=== PATIENT | male | born 1955 | race Caucasian/White ===

== ENCOUNTER 2017-03-19 07:37 | Day surgery (SDC) | payer OTHER ==
[~2017-03-19] VITALS: Ht 167.6 cm; Wt 93.0 kg
[~2017-03-19 07:37] MED LIST: ACTOS45 MG PO; ASPIRIN EC325 MG PO; ASPIRIN81 M2 PO; CINNAMON500 MG PO; COQ-10100 MG PO; ENDOCET 5-3251 EACH PO; FERROUS SULFAT325 MG PO; FORTAMET1000 M1 PO; GLIPIZIDE5 MG PO; HYDROCODON-ACE1 EAC7 PO; IBUPROFEN800 MG PO; LIPITOR40 MG PO; LISINOPRIL2.5 MG PO; METFORMIN HCL1000 MG PO; MIRALAX17 GM PO; NEXIUM40 MG PO; OXYCONTIN10 MG PO; PERCOCET 5/31 TABLET PO; STOOL SOFTENER100 MG PO; VITAMIN D32000 UNI1 PO
[2017-03-19] MEDS ORDERED: TRAMADOL HCL50 MG PO (08:03)
[2017-03-19] MEDS ORDERED: GABAPENTIN100 MG PO ×2 (08:04→08:05)
[2017-03-19 08:08] LABS: POINT-OF-CARE METER ID UU14174212
== END 2017-03-19 09:10 | disposition home or self-care (01) ==
LOC: PAIN 07:37 → SDC 08:15 → PAIN 09:10
PROVIDERS: Anesthesiology Pain Medicine
DX: M51.16 Intervertebral disc disorders with radiculopathy, lumbar region (principal); E11.9 Type 2 diabetes mellitus without complications; K21.9 Gastro-esophageal reflux disease without esophagitis; R03.0 Elevated blood-pressure reading, without diagnosis of hypertension; E78.5 Hyperlipidemia, unspecified; E66.9 Obesity, unspecified; Z68.34 Body mass index [BMI] 34.0-34.9, adult; M53.3 Sacrococcygeal disorders, not elsewhere classified; Z79.891 Long term (current) use of opiate analgesic; Z79.84 Long term (current) use of oral hypoglycemic drugs; Z79.82 Long term (current) use of aspirin; Z79.899 Other long term (current) drug therapy; Z88.2 Allergy status to sulfonamides
CPT/HCPCS: 82948; J1030; J2250; J3010; S0020

== ENCOUNTER 2017-03-26 07:10 | Day surgery (SDC) | payer OTHER ==
[~2017-03-26] VITALS: Ht 167.6 cm; Wt 93.0 kg
[~2017-03-26 07:10] MED LIST changes: +GABAPENTIN100 MG PO; +TRAMADOL HCL50 MG PO
[2017-03-26 07:32] LABS: POINT-OF-CARE METER ID UU14174212
== END 2017-03-26 09:00 | disposition home or self-care (01) ==
LOC: PAIN 07:10 → SDC 07:45 → PAIN 09:00
PROVIDERS: Anesthesiology Pain Medicine
DX: M51.16 Intervertebral disc disorders with radiculopathy, lumbar region (principal); M54.5 Low back pain; M51.34 Other intervertebral disc degeneration, thoracic region; E11.9 Type 2 diabetes mellitus without complications; K21.9 Gastro-esophageal reflux disease without esophagitis; Z79.84 Long term (current) use of oral hypoglycemic drugs; Z79.82 Long term (current) use of aspirin; Z79.891 Long term (current) use of opiate analgesic; Z79.899 Other long term (current) drug therapy; E66.9 Obesity, unspecified; M53.3 Sacrococcygeal disorders, not elsewhere classified; Z88.2 Allergy status to sulfonamides
CPT/HCPCS: 82948; J1030; J2250; J3010; S0020

== ENCOUNTER 2017-04-28 10:53 | Emergency (ER) | payer OTHER ==
[~2017-04-28] VITALS: Ht 167.6 cm; Wt 94.5 kg
[2017-04-28 11:49] LABS: BILIRUBIN NEGATIVE; BLOOD NEGATIVE; COLOR YELLOW ((YELLOW)); GLUCOSE (STRIP) NEGATIVE; KETONES 5; LEUKOCYTES NEGATIVE; NITRITE NEGATIVE; PROTEIN (STRIP) 30; SPECIFIC GRAVITY 1.032 (1.000-1.030); UROBILINOGEN 0.2 MG/DL (0.2-1.0)
[2017-04-28 11:51] LABS: ADD MIUA? NO; UCUL ADDED? NO
[2017-04-28 12:25] LABS: HEMATOCRIT 41.2 % (38.0-50.0); MCV 91.4 FL (86-99); MEAN PLAT.VOLUME 8.9 uM^3 (9.0-12.4); PLATELET COUNT 259 K/uL (156-360); RBC DIS.WIDTH-CV 13.5 % (11.8-14.6); RBC DIS.WIDTH-SD 45.8 % (39-53); RED BLOOD COUNT 4.51 M/uL (4.00-5.50); WHITE BLOOD COUNT 9.3 K/uL (4.1-10.2)
[2017-04-28 12:35] LABS: CHLORIDE 104 mEq/L (99-109); POTASSIUM 5.1 mEq/L (3.7-5.4); SODIUM 140 mEq/L (136-147)
[2017-04-28 12:37] LABS: GLUCOSE 141 mg/dL (70-99)
[2017-04-28 12:38] LABS: ANION GAP 9 MEQ/L (2-14)
[2017-04-28 12:41] LABS: GFR ESTIMATE (CALCULATED) > 59 mL/min/; UREA NITROGEN (BUN) 23 mg/dL (9-23)
[2017-04-28] MEDS ORDERED: ZOFRAN4 MG PO (18:20)
[2017-04-28] MEDS ORDERED: FLOMAX0.4 MG PO (18:20)
[2017-04-28] MEDS ORDERED: CIPRO500 MG PO (18:20)
[2017-04-28] MEDS ORDERED: PERCOCET 5/31 TABLET PO (18:20)
[2017-04-28 19:59] VITALS: BP 150/78
== END 2017-04-28 20:01 | disposition home or self-care (01) ==
LOC: EME 10:53
DX: N13.2 Hydronephrosis with renal and ureteral calculous obstruction (principal); R11.2 Nausea with vomiting, unspecified; E11.65 Type 2 diabetes mellitus with hyperglycemia; Z79.84 Long term (current) use of oral hypoglycemic drugs; I10 Essential (primary) hypertension; K21.9 Gastro-esophageal reflux disease without esophagitis; H54.8 Legal blindness, as defined in USA
CPT/HCPCS: 74176; 80048; 81003; 85027; 99281; 99284; J0696; J2270; J2405; J3010; J7050

== ENCOUNTER → 2017-05-01 | Outpatient (CLI) | payer OTHER ==
[~2017-05-01] MED LIST changes: +CIPRO500 MG PO; +DILAUDID2 MG PO; +DILAUDID4 MG PO; +FLOMAX0.4 MG PO; +LIPITOR80 MG PO; +METFORMIN HCL500 M1 PO; +OMEPRAZOLE20 MG PO; +ZOFRAN4 MG PO
== END | disposition home or self-care (01) ==
LOC: CDC 11:38
DX: N20.0 Calculus of kidney (principal); R94.31 Abnormal electrocardiogram [ECG] [EKG]
CPT/HCPCS: 93000

== ENCOUNTER 2017-05-03 18:01 | Inpatient (IN) | payer OTHER ==
[~2017-05-03] VITALS: Ht 167.6 cm; Wt 95.0 kg
[~2017-05-03 18:01] MED LIST changes: -DILAUDID2 MG PO; -DILAUDID4 MG PO; -LIPITOR80 MG PO; -METFORMIN HCL500 M1 PO; -OMEPRAZOLE20 MG PO
[2017-05-03 19:36] LABS: HEMATOCRIT 38.4 % (38.0-50.0); MCH 30.8 PG (29.0-34.0); MCHC 34.1 G/DL (30.0-36.0); MCV 90.1 FL (86-99); MEAN PLAT.VOLUME 8.8 uM^3 (9.0-12.4); PLATELET COUNT 231 K/uL (156-360); RBC DIS.WIDTH-CV 13.3 % (11.8-14.6); RBC DIS.WIDTH-SD 43.8 % (39-53); RED BLOOD COUNT 4.26 M/uL (4.00-5.50); WHITE BLOOD COUNT 9.8 K/uL (4.1-10.2)
[2017-05-03 19:45] LABS: CHLORIDE 95 mEq/L (99-109); SODIUM 132 mEq/L (136-147)
[2017-05-03 19:47] LABS: GLUCOSE 161 mg/dL (70-99)
[2017-05-03 19:48] LABS: ANION GAP 12 MEQ/L (2-14)
[2017-05-03 19:49] LABS: TOTAL BILIRUBIN 0.9 mg/dL (0.0-1.0)
[2017-05-03 19:50] LABS: ALKALINE PHOSPHATASE 63 IU/L (3-129)
[2017-05-03 19:51] LABS: GFR ESTIMATE (CALCULATED) > 59 mL/min/
[2017-05-03 19:52] LABS: UREA NITROGEN (BUN) 16 mg/dL (9-23)
[2017-05-03 20:42] LABS: ADD MIUA? YES; BILIRUBIN NEGATIVE; BLOOD LARGE; COLOR YELLOW ((YELLOW)); GLUCOSE (STRIP) 50; KETONES 80; LEUKOCYTES MODERATE; NITRITE NEGATIVE; PROTEIN (STRIP) 30; UROBILINOGEN 0.2 MG/DL (0.2-1.0)
[2017-05-03 21:02] LABS: BACTERIA RARE /HPF; EPITHELIAL CELLS NONE SEEN /HPF; HYALINE CASTS 0-5 /LPF; MUCUS TRACE /LPF; RED BLOOD CELLS TNTC /HPF (0-5); UCUL ADDED? NO; WHITE BLOOD CELLS NONE SEEN /HPF (0-5)
[2017-05-03] MEDS ORDERED: LIPITOR80 MG PO (21:11)
[2017-05-03] MEDS ORDERED: OMEPRAZOLE20 MG PO (21:12)
[2017-05-03] MEDS ORDERED: DILAUDID4 MG PO (21:12)
[2017-05-03] MEDS ORDERED: METFORMIN HCL500 M1 PO (21:13)
[2017-05-04] VITALS (7 sets, daily range): BP systolic 139–183; BP diastolic 63–85
[2017-05-04 01:00] LABS: POINT-OF-CARE METER ID UU14162513
[2017-05-04] MEDS ORDERED: DILAUDID2 MG PO (01:19)
[2017-05-04 05:30] LABS: HEMATOCRIT 32.4 % (38.0-50.0); MCH 31.4 PG (29.0-34.0); MCHC 34.6 G/DL (30.0-36.0); MCV 90.8 FL (86-99); MEAN PLAT.VOLUME 8.9 uM^3 (9.0-12.4); PLATELET COUNT 222 K/uL (156-360); RBC DIS.WIDTH-CV 13.2 % (11.8-14.6); RBC DIS.WIDTH-SD 44.3 % (39-53); RED BLOOD COUNT 3.57 M/uL (4.00-5.50); WHITE BLOOD COUNT 8.7 K/uL (4.1-10.2)
[2017-05-04 05:55] LABS: ALKALINE PHOSPHATASE 52 IU/L (3-129); ANION GAP 8 MEQ/L (2-14); CHLORIDE 99 MEQ/L (99-109); GFR ESTIMATE (CALCULATED) > 59 mL/min/; GLUCOSE 142 mg/dL (70-99); POTASSIUM 4.6 MEQ/L (3.7-5.4); SAMPLE HEMOLYSIS CHECK 0; SAMPLE ICTERIC CHECK 0; SAMPLE LIPEMIA CHECK 0; SODIUM 134 MEQ/L (136-147); TOTAL BILIRUBIN 0.7 MG/DL (0.0-1.0); UREA NITROGEN (BUN) 15 mg/dL (9-23)
[2017-05-04 06:03] LABS: POINT-OF-CARE METER ID UU13113700
[2017-05-04 12:35] LABS: POINT-OF-CARE METER ID UU14162513
[2017-05-04 17:10] LABS: POINT-OF-CARE METER ID UU13113725
[2017-05-04 17:41] LABS: INTERNAL CONTROL VALID? YES
[2017-05-04 18:17] LABS: C DIFF TOXIN NEGATIVE (NEGATIVE)
[2017-05-04 18:28] LABS: PROBE CHECK PASS; SPECIMEN PROCESSING CONTROL PASS
[2017-05-04 23:30] LABS: POINT-OF-CARE METER ID UU13113725
[2017-05-05 06:19] LABS: POINT-OF-CARE METER ID UU13113725
[2017-05-05 06:50] LABS: HEMATOCRIT 33.2 % (38.0-50.0); MCH 30.7 PG (29.0-34.0); MCHC 33.7 G/DL (30.0-36.0); MEAN PLAT.VOLUME 8.9 uM^3 (9.0-12.4); PLATELET COUNT 266 K/uL (156-360); RBC DIS.WIDTH-CV 13.1 % (11.8-14.6); RBC DIS.WIDTH-SD 43.6 % (39-53); RED BLOOD COUNT 3.65 M/uL (4.00-5.50); WHITE BLOOD COUNT 9.7 K/uL (4.1-10.2)
[2017-05-05 07:14] LABS: ANION GAP 10 MEQ/L (2-14); CHLORIDE 99 MEQ/L (99-109); GFR ESTIMATE (CALCULATED) > 59 mL/min/; GLUCOSE 126 mg/dL (70-99); POTASSIUM 4.7 MEQ/L (3.7-5.4); SAMPLE HEMOLYSIS CHECK 0; SAMPLE ICTERIC CHECK 0; SAMPLE LIPEMIA CHECK 0; SODIUM 135 MEQ/L (136-147); UREA NITROGEN (BUN) 15 mg/dL (9-23)
[2017-05-05 08:28] VITALS: BP 186/88
[2017-05-05 11:00] LABS: POINT-OF-CARE METER ID UU13113725
[2017-05-05 11:28] VITALS: BP 165/76
[2017-05-05 16:21] VITALS: BP 127/69
[2017-05-05 17:07] LABS: POINT-OF-CARE METER ID UU13113725
[2017-05-05 20:09] VITALS: BP 143/67
[2017-05-05 22:29] VITALS: BP 159/76
[2017-05-06 03:04] VITALS: BP 194/88
[2017-05-06 06:39] LABS: ANION GAP 6 MEQ/L (2-14); CHLORIDE 105 MEQ/L (99-109); GFR ESTIMATE (CALCULATED) > 59 mL/min/; GLUCOSE 153 mg/dL (70-99); POTASSIUM 4.5 MEQ/L (3.7-5.4); SAMPLE HEMOLYSIS CHECK 0; SAMPLE ICTERIC CHECK 0; SAMPLE LIPEMIA CHECK 0; SODIUM 139 MEQ/L (136-147); UREA NITROGEN (BUN) 14 mg/dL (9-23)
[2017-05-06 07:37] VITALS: BP 207/93
[2017-05-06 08:18] VITALS: BP 179/80
[2017-05-06 11:05] LABS: POINT-OF-CARE METER ID UU13113725
[2017-05-06 11:28] VITALS: BP 165/77
[2017-05-06] MEDS ORDERED: LISINOPRIL5 MG PO (11:53)
[2017-05-06] MEDS ORDERED: TRAMADOL HCL50 MG PO (11:54)
== END 2017-05-06 13:59 | disposition home or self-care (01) | DRG 694 ==
LOC: EME 18:01 → RME 18:01 → 5WEST 22:59 → EDOF 22:59 → 5WEST 05-04 00:34 → 5EAST 05-04 11:00 → 5WEST 05-04 11:00 → 5EAST 05-04 14:10
PROVIDERS: Family Medicine; Hospitalist; Internal Medicine; Physician Assistant
DX: N13.2 Hydronephrosis with renal and ureteral calculous obstruction (principal); E11.9 Type 2 diabetes mellitus without complications; E78.00 Pure hypercholesterolemia, unspecified; E78.5 Hyperlipidemia, unspecified; E86.0 Dehydration; I10 Essential (primary) hypertension; K21.9 Gastro-esophageal reflux disease without esophagitis; Z96.652 Presence of left artificial knee joint; R19.7 Diarrhea, unspecified; T36.95XA Adverse effect of unspecified systemic antibiotic, initial encounter; H54.8 Legal blindness, as defined in USA
CPT/HCPCS: 74176; 80048; 80053; 81003; 82948; 83605; 83630; 85027; 87040; 87086; 87177; 87493; 94799; 99281; 99285; G0378; J0360; J0696; J1170; J1815; J2270; J2405; J3010; J7030; J7050; S0028

== ENCOUNTER → 2017-05-11 | Outpatient (CLI) | payer OTHER ==
[~2017-05-11] VITALS: Ht 167.6 cm; Wt 93.0 kg
[~2017-05-11] MED LIST changes: +DILAUDID2 MG PO; +DILAUDID4 MG PO; +LIPITOR80 MG PO; +LISINOPRIL5 MG PO; +METFORMIN HCL500 M1 PO; +OMEPRAZOLE20 MG PO
[2017-05-11 09:39] LABS: POINT-OF-CARE METER ID UU14174212
== END | disposition home or self-care (01) ==
LOC: AMB 07:49
PROVIDERS: Urology
PROC: 0TF3XZZ Fragmentation in Right Kidney Pelvis, External Approach (ICD-10-PCS; principal; 2017-05-11)
DX: N20.2 Calculus of kidney with calculus of ureter (principal); E11.9 Type 2 diabetes mellitus without complications
CPT/HCPCS: 74010; 82948; J1885; J2250; J2405; J3010

== ENCOUNTER 2017-06-08 11:58 | Day surgery (SDC) | payer OTHER ==
[~2017-06-08] VITALS: Ht 167.6 cm; Wt 90.7 kg
[~2017-06-08 11:58] MED LIST changes: +OMEPRAZOLE40 M1 PO
[2017-06-08 12:43] LABS: POINT-OF-CARE METER ID UU13113694
== END 2017-06-08 13:44 | disposition home or self-care (01) ==
LOC: PAIN 11:58 → SDC 12:30 → PAIN 12:30
PROVIDERS: Anesthesiology Pain Medicine
DX: M47.26 Other spondylosis with radiculopathy, lumbar region (principal); M51.16 Intervertebral disc disorders with radiculopathy, lumbar region; I10 Essential (primary) hypertension; E78.5 Hyperlipidemia, unspecified; E66.9 Obesity, unspecified; Z68.32 Body mass index [BMI] 32.0-32.9, adult; Z79.82 Long term (current) use of aspirin; E11.9 Type 2 diabetes mellitus without complications; Z79.84 Long term (current) use of oral hypoglycemic drugs; Z87.891 Personal history of nicotine dependence
CPT/HCPCS: 82948; J1030; J2250; J3010; S0020

== ENCOUNTER 2017-06-15 11:44 | Day surgery (SDC) | payer OTHER ==
[~2017-06-15] VITALS: Ht 167.6 cm; Wt 90.7 kg
[2017-06-15 12:28] LABS: POINT-OF-CARE METER ID UU13113694; POINT-OF-CARE USER ID AHSRSCSLC11
== END 2017-06-15 13:23 | disposition home or self-care (01) ==
LOC: PAIN 11:44 → SDC 12:15 → PAIN 12:15
PROVIDERS: Anesthesiology Pain Medicine
DX: M47.26 Other spondylosis with radiculopathy, lumbar region (principal); M51.16 Intervertebral disc disorders with radiculopathy, lumbar region; E11.9 Type 2 diabetes mellitus without complications; I10 Essential (primary) hypertension; E78.5 Hyperlipidemia, unspecified; E66.9 Obesity, unspecified; Z68.32 Body mass index [BMI] 32.0-32.9, adult; K21.9 Gastro-esophageal reflux disease without esophagitis; Z79.82 Long term (current) use of aspirin; Z79.84 Long term (current) use of oral hypoglycemic drugs; Z79.891 Long term (current) use of opiate analgesic
CPT/HCPCS: 82948; J1030; J2250; J3010; S0020